=== PATIENT | male | born 1995 | race Caucasian/White ===

== ENCOUNTER 2021-01-16 20:40 | Emergency (ER) | payer BC, OTHER ==
[2021-01-16] MEDS ORDERED: Ibuprofen 200 MG Tab PO ONE (21:10)
[2021-01-16] MEDS ORDERED: Take Home: Acetaminophen/HYDROcodone 325-5 MG, 5 Tab Pack PO ONE (21:24)
== END 2021-01-16 21:45 | disposition home or self-care (01) ==
LOC: VM.ED 20:40
DX: S62.313A Displaced fracture of base of third metacarpal bone, left hand, initial encounter for closed fracture (principal); W23.0XXA Caught, crushed, jammed, or pinched between moving objects, initial encounter
CPT/HCPCS: 73130; 99283; A9270; 29125